=== PATIENT | female | born 1970 | race Caucasian/White ===

== ENCOUNTER 2022-11-23 21:22 | Emergency (ER) | payer BC ==
--- NOTE | 2022-11-23 23:51 | ED Physician Documentation ---
History of Present Illness - Stated complaint Stated Complaint: FOOT PX - Chief complaint Chief Complaint: Ext Problem - History obtained from History obtained from: Patient, Family - Additonal information Additional information: The patient comes to the emergency department chief complaint of Right foot pain. The patient [place] little bit and even but she denies any actual injury to the area. She states pain started yesterday but has gotten progressively worse to the point where she came hardly bear weight because it hurts so much. She points to the dorsum of her foot as the source of pain. She denies any pain in her ankle or higher up into her leg. No swelling. No prior injury or procedures. No history of gout. The patient has not noticed any redness, fevers, or chills. No other complaints at this time. PD PAST MEDICAL HISTORY - Allergies Allergies/Adverse Reactions: Allergies Allergy/AdvReac Type Severity Reaction Status Date / Time No Known Drug Allergies Allergy Verified 11/23/22 21:34 PD ED PE NORMAL - Vitals Vital signs reviewed: Yes - General General: Alert and oriented X 3, No acute distress, Well developed/nourished - HEENT HEENT: Atraumatic, PERRL, EOMI, Moist mucous membranes - Neck Neck: Supple, no meningeal sign - Cardiac Cardiac: Strong equal pulses - Respiratory Respiratory: No respiratory distress - Derm Derm: Normal color, Warm and dry, No rash - Extremities Extremities: No deformity, Normal ROM s pain, No edema, No calf tenderness / cord, Other (Mild tenderness to palpation over the dorsum of the left foot. Full range of motion ankle without point tenderness.) - Neuro Neuro: Alert and oriented X 3 - Psych Psych: Normal mood, Normal affect Results - Vitals Vitals: Oxygen O2 Source Room air - Rads (name of study) Right foot x-ray series Relevant Findings:: Final report received, See rad report (Negative) PD Medical Decision Making - ED course Complexity details: reviewed results, re-evaluated patient, considered differential, d/w patient, d/w family ED course: I discussed with the patient that I do not find any abnormalities on exam other than mild tenderness over the dorsum and that her x-ray series is negative. The patient does not report any history of specific injury and there is no evidence on exam to raise concern for infection or gout. The patient does not have any pain or swelling in her leg to raise concern for blood clot. At this point in time I do not know what is causing the patient's pain. I suspect it is most likely a strain of the soft tissues, perhaps from walking on uneven ground, but I cannot be sure. I have offered her crutches and have advised follow-up with her primary doctor or podiatry when she returns to her home, if the problem does not resolve on its own. Departure - Departure Disposition: 01 Home, Self Care Clinical Impression: Foot pain, right Condition: Stable Instructions: ED Sprain Foot Discharge Date/Time: 11/24/22 00:05
[2022-11-24 00:09] VITALS: BP 132/63
--- NOTE | 2022-11-24 00:12 | XRAY Report ---
PROCEDURE: Foot 3 View RT INDICATIONS: Trauma TECHNIQUE: 3 views of the foot were acquired. COMPARISON: None. FINDINGS: Bones: No fractures or dislocations. There is mild degeneration of the first interphalangeal joint. No suspicious bony lesions. Soft tissues: There is soft tissue swelling of the great toe. No suspicious soft tissue calcificatio ns or masses. IMPRESSION: No acute bony abnormality. Reviewed by: Vj Coffey MD on 11/24/2022 12:10 AM PDT Approved by: Vj Coffey MD on 11/24/2022 12:10 AM PDT Station ID: [id number]
== END 2022-11-24 00:05 | disposition home or self-care (01) ==
LOC: ED 21:22
DX: M79.671 Pain in right foot (principal)
CPT/HCPCS: 99281; 99283